=== PATIENT | female | born 1945 | race Caucasian/White ===

== ENCOUNTER → 2018-04-01 12:29 | Outpatient (REF) | payer MEDICARE, OTHER, SELFPAY | LOC: NCHCN 12:29 | PROVIDERS: Visit Provider Nurse Practitioner | DX: R58 Hemorrhage, not elsewhere classified (principal) | CPT/HCPCS: 87480; 87510; 87660 ==

== ENCOUNTER → 2018-04-10 01:54 | Outpatient (CLI) | payer MEDICARE, SELFPAY ==
--- NOTE | 2018-04-10 15:30 | DI.REPORT_ITS ---
SYMPTOMS/DIAGNOSIS: SCREENING, Z12.39, PREVENTATIVE CARE, Z00.00 MAMMOGRAMS: Mammograms were interpreted according to the usual protocol including computer analysis with CAD system, tomosynthesis and C view imaging. The breast tissue is heterogeneously radiodense, which lowers the sensitivity of the study. There is no dominant mass. Numerous benign-appearing calcifications are identified bilaterally. No suspicious clusters are seen. SUMMARY: No evidence of malignancy, category 1. Yearly screening mammography is recommended. Breast density category C. SA ASSESSMENT OF FINDINGS: Negative. Category 1. Patient will receive a letter notifying them of these results. Bi-RADS category C. The breasts are heterogeneously dense, which may obscure small masses.
== END ==
PROVIDERS: Visit Provider Nurse Practitioner
DX: Z12.31 Encounter for screening mammogram for malignant neoplasm of breast (principal)
CPT/HCPCS: 77063; 77067

== ENCOUNTER 2018-05-09 13:52 | Outpatient (REF) | payer MEDICARE, OTHER, SELFPAY ==
--- NOTE | 2018-05-09 13:00 | PAPFT_PTH ---
PATIENT: Stephy Colindres LOC: [facility] U#:[id number] AGE/SX: 72/F ROOM: RE05/09/[address]: Isabela Sandoval : 1945 BED: DIS: 05/09/2018 SPEC #: [id number] RECD: 05/09/18 18:12 STATUS: MARYLIN REEvelin #: [id number] MARIA: 05/09/18 13:[address]: Isabela Sandoval DEPT: [facility] Cytology RECD BY: Kala Cook ENTERED: 05/09/18 18:12 SP TYPE: PAPFT OTHR DR: Elly Cruz Tissues: 1 - CX/ENDOCX FOR PAP SMEARS Procedures: PAP THIN PREP/UVM Screening HPV DNA PROBE Comments: [id number]
--- NOTE | 2018-05-09 13:00 | ENDOMET_PTH ---
PATIENT: Stephy Colindres LOC: [facility] U#:[id number] AGE/SX: 72/F ROOM: RE05/09/[address]: Isabela Sandoval : 1945 BED: DIS: 05/09/2018 SPEC #: [id number] RECD: 05/09/18 18:18 STATUS: MARYLIN REEvelin #: [id number] MARIA: 05/09/18 13:[address]: Isabela Sandoval DEPT: Surgical Specimen RECD BY: Kala Cook ENTERED: 05/09/18 18:18 SP TYPE: Endomet OTHR DR: Elly Cruz Tissues: 1 - ENDOMETRIUM BX/CONCHITA Procedures: GROSS AND MICRO LEVEL 4 IMMUNOPEROXIDASE STAIN P16 IPEX Comments: [id number]
== END 2018-05-09 14:12 ==
LOC: LBN 13:52
PROVIDERS: Visit Provider Obstetrics & Gynecology Gynecology
DX: N95.0 Postmenopausal bleeding (principal); N85.8 Other specified noninflammatory disorders of uterus; Z12.4 Encounter for screening for malignant neoplasm of cervix; Z11.51 Encounter for screening for human papillomavirus (HPV)
CPT/HCPCS: 88142; 88305; 88342; 87624; 88361

== ENCOUNTER 2018-05-15 02:15 | Outpatient (CLI) | payer MEDICARE, OTHER, SELFPAY ==
[2018-05-15 07:53] LABS: HCT 43.6 % (36.0-46.0); HGB 14.2 g/dL (12.0-15.5); Mean Corp. HGB Concentration 32.6 g/dL (32.0-36.0); Mean Corpuscular Hemoglobin 31.3 pg (27.0-33.0); Mean Platelet Volume 9.7 fL (8.0-11.0); Platelet Count 287 x1000/uL (130-400); RBC 4.54 m/cumm (4.00-5.20); RBC Distribution Width 13.6 % (11.7-14.6)
[2018-05-15 09:06] LABS: ALT 20 U/L (12-78); AST 20 U/L (15-37); Albumin 3.5 g/dL (3.4-5.0); Alkaline Phosphatase 81 U/L (46-116); Anion Gap 5.3 mmol/L (3-11); BUN 17 mg/dL (7-18); Bilirubin, Total 0.4 mg/dL (0.2-1.0); CO2 29.7 mmol/L (21.0-32.0); CREATININE 0.79 mg/dL (0.55-1.02); Calcium 8.5 mg/dL (8.5-10.1); Chloride 104 mmol/L (98-107); Cholesterol 256 mg/dL (50-200); Glucose 86 mg/dL (70-100); HDL Cholesterol 67 mg/dL (40-60); LDL CHOLESTEROL 165 mg/dL (<100); Potassium 4.3 mmol/L (3.5-5.1); Sodium 139 mmol/L (136-145); Total Protein 7.2 g/dL (6.4-8.2); Triglyceride 148 mg/dL (30-150)
== END 2018-05-15 02:35 ==
PROVIDERS: Visit Provider Family Medicine
DX: E78.89 Other lipoprotein metabolism disorders (principal); F03.90 Unspecified dementia, unspecified severity, without behavioral disturbance, psychotic disturbance, mood disturbance, and anxiety
CPT/HCPCS: 36415; 80053; 80061; 83721; 85027

== ENCOUNTER → 2018-05-17 09:01 | Outpatient (BNVA) | payer MEDICARE, OTHER, SELFPAY | PROVIDERS: Visit Provider Surgery | DX: Z12.11 Encounter for screening for malignant neoplasm of colon (principal); Z80.0 Family history of malignant neoplasm of digestive organs ==

== ENCOUNTER 2018-06-03 07:21 | Day surgery (SDC) | payer MEDICARE, OTHER, SELFPAY ==
--- NOTE | 2018-06-03 06:11 | W.COLOREPORT ---
Date of service: 06/03/18 Time of Service: : Colonoscopy Report Date of procedure: 06/03/18 Pre-op diagnosis general: Family history and colon cancer screening Procedure: Colonoscopy with polypectomy by cold forceps Surgeon: Sonia Sandra Anesthesia proc note operative: MAC (Shayna Avery CRNA) Estimated blood loss (mL): 5 Pathology: other (Polyp x5) Complications: None Disposition: same day Indications: Mrs. Colindres is a pleasant 72 year old female who was seen in the office with her to discuss a screening colonoscopy. Risks, benefits and complications were reviewed and she wished to proceed. No guarantees were given or implied. Prep: Miralax/Dulcolax Procedure Start Time: : Procedure End Time: 10:03 Retraction Time: 27 minutes Findings: Reyes-diverticulosis 5 polyps Procedure Description: After informed consent was obtained the patient was taken to the procedure room and placed in a left decubitous position. Monitors were applied and a time out was done. The patients name, date of , procedure, allergies to medications and metal in their body was reviewed. The patient was then sedated. Once sedated and comfortable a rectal exam was done. External exam was normal. Internal exam revealed a normal sphincter tone and no palpable masses. The scope was then introduced and retroflexed. No internal hemorrhoids were identified. The scope was then advanced to the cecum without difficulty. The TI and appendiceal orifice were identified. The prep was adequate. The scope was then slowly retracted over 27 minutes back into the rectum. 5 polyps were removed. 2 in the ascending colon, 2 in the transverse colon and 1 in the descending colon. Reyes-diverticulosis was also noted, worse in on the left colon. The scope was removed and the patient was woken up and taken back to Same day surgery in stable condition. The patient tolerated the procedure well and there were no immediate complications. Follow up: The patient should follow up in 3-5 years unless they develop changes in bowel habits or other new gastrointestinal complaints.
--- NOTE | 2018-06-03 06:13 | PDOC.DSDIS_ITS ---
Discharge Plan Disposition Patient Disposition: HOME Condition: Good Discharge Details Reason For Visit: colonoscopy Attending Provider: Sonia Sandra Primary Care Provider: Elly Cruz Home Meds and New Rx's Prescriptions: Continue cyanocobalamin (vitamin B-12) 1,000 MCG tablet 1,000 mcg PO DAILY RF: 0 multivitamin 1 EACH tablet 1 ea PO DAILY RF: 0 cholecalciferol (vitamin D3) [Vitamin D3] 400 UNIT tablet 400 unit PO DAILY RF: 0 acetaminophen [Tylenol] 325 mg Capsule RF: 0 Discontinued magnesium citrate solution 240 ml PO ONCE Qty: 888 RF: 0 Discharge Instructions Instructions: Colonoscopy (DC), Diverticulosis (DC), Colorectal Polyps (DC) Additional Instructions: Findings: 5 polyps Diverticulosis Follow up: 3-5 years New Medication: none Please call if you develop: fevers >101.5 Nausea or Vomiting Abdominal pain that is not transient 1. Because there will be medication in your system for the next 24 hours, you may feel a little sleepy. Your coordination will be affected. Therefore: a. Do not drive or operate dangerous equipment for 24 hours. b. Do not drink alcohol beverages for 24 hours (not even beer). c. Plan to go home and rest for the day. 2. Generally there are no restrictions on your activity after a day or so has gone by, but you may feel a bit fatigued for a few days. 3 After you arrive home you may have a light meal and return to a normal diet as you can tolerate it without feeling sick to your stomach. 4. After surgery, you may feel pain or discomfort. This should be only transient , but if it persists please contact your doctor. 5. If there are any questions regarding the findings of your procedure, please feel free to contact your doctor. 6. If you are unable to contact your doctor with a problem, contact the ospital at [phone]. 7. Continue all your regular medications unless directed otherwise. I understand the above instructions and have no questions. Signature of Patient or Responsible Adult Escort Date/Time Name of Responsible Adult Escort Signature of Nurse Date/Time Activity:: Activity as Tolerated Diet:: high fiber diet Discharge Orders Discharge Orders: Discharge Order (Routine); Ordered 06/03/18 Ordered By: Sonia Sandra DS: Diagnosis Discharge Diagnosis (1) Colon polyps: Status: Acute (2) Diverticulosis: Status: Acute
[2018-06-03 08:00] VITALS: BP 123/76; PULSE 60; RESP 18; TEMP 36.5; O2SAT 98
[2018-06-03 08:15] VITALS: BP 123/76; PULSE 60; RESP 18; TEMP 36.5; O2SAT 98
[2018-06-03] MEDS: Lactated Ringers 1,000 ML 80 ML IV (08:20)
--- NOTE | 2018-06-03 09:40 | BOWEL_PTH ---
PATIENT: Stephy Colindres LOC: [facility] U#:[id number] AGE/SX: 72/F ROOM: RE06/03/[address]: Sonia Sandra MD : 1945 BED: DIS: 06/03/2018 SPEC #: [id number] RECD: 06/03/18 12:43 STATUS: MARYLIN REQ #: [id number] MARIA: 06/03/18 09:[address]: Sonia Sandra DEPT: Surgical Specimen RECD BY: Kala Cook ENTERED: 06/03/18 12:45 SP TYPE: Bowel OTHR DR: Elly Cruz Tissues: 1 - BIOPSY BOWEL 2 - BIOPSY BOWEL 3 - BIOPSY BOWEL Procedures: GROSS AND MICRO LEVEL 4 Comments: [id number]
[2018-06-03 10:50] VITALS: BP 113/53; PULSE 60; RESP 18; TEMP 35.9; O2SAT 96
[2018-06-03 12:05] VITALS: BP 131/69; PULSE 58; RESP 18; TEMP 36.2; O2SAT 95
[2018-06-03] MEDS: Ketorolac 15 MG/ML VIAL IVP (12:05)
[2018-06-03 12:30] VITALS: BP 141/83; PULSE 54; RESP 18; TEMP 36; O2SAT 98
[2018-06-03 13:30] VITALS: BP 140/70; PULSE 66; RESP 16; TEMP 35.4; O2SAT 100
== END 2018-06-03 13:50 | disposition home or self-care (01) ==
PROVIDERS: Visit Provider Surgery
PROC: 0DJD8ZZ Inspection of Lower Intestinal Tract, Via Natural or Artificial Opening Endoscopic (ICD-10-PCS; CPT 45378; principal; 2018-06-03 09:00)
DX: Z12.11 Encounter for screening for malignant neoplasm of colon (principal); D12.2 Benign neoplasm of ascending colon; D12.3 Benign neoplasm of transverse colon; D12.4 Benign neoplasm of descending colon; Z80.0 Family history of malignant neoplasm of digestive organs
CPT/HCPCS: 45380; 88305; J1885

== ENCOUNTER 2018-06-04 05:10 | Emergency (ER) | payer MEDICARE, OTHER, SELFPAY ==
[2018-06-04 05:12] VITALS: BP 119/63; PULSE 63; RESP 20; TEMP 36.4; O2SAT 95
--- NOTE | 2018-06-04 05:24 | W.ED.GENAD ---
Discharge Plan Disposition Patient Disposition: HOME Condition: Improving Discharge Details Chief Complaint: Abd Prob Clinical Impression: Abdominal distension, gaseous Primary Care Provider: Elly Cruz ED Provider: Ankur Caraballo Home Meds and New Rx's Prescriptions: Continue cyanocobalamin (vitamin B-12) 1,000 MCG tablet 1,000 mcg PO DAILY RF: 0 multivitamin 1 EACH tablet 1 ea PO DAILY RF: 0 cholecalciferol (vitamin D3) [Vitamin D3] 400 UNIT tablet 400 unit PO DAILY RF: 0 acetaminophen [Tylenol] 325 mg Capsule 1 tab PO PRN PRNRF: 0 Discharge Instructions Instructions: Abdominal Pain (ED) Additional Instructions: I discussed your case and your CAT scan with Dr. Sandra today Please continue all regular medications. Return to the emergency room for any acute concerns. Home to rest today. Medical Decision Making 72-year-old female presents post procedure day 1 with abdominal pain following colonoscopy with polypectomy. She does not have a fever and her vital signs are reassuring. She is diffusely tender in her abdomen. Broad differential diagnosis including perforation, obstruction, ileus considered. Patient had IV access established, given small fluid bolus, referred for CT scan of the abdomen. Patient's laboratories are reassuring. Her CT scan shows colonic dilatation with gas but no other acute findings. Case discussed with the patient's surgeon, Dr. Figueroa. Patient given enema in the ED. she is stable for discharge to home. Lab Data Lab results reviewed: Yes I reviewed the patient's lab results. Laboratory Tests Range/Units 06/04/18 06/04/18 05:40 05:40 WBC (4.4-10.8) k/cumm 7.55 RBC (4.00-5.20) m/cumm 4.27 Hgb (12.0-15.5) g/dL 13.7 Hct (36.0-46.0) % 40.4 MCV (80-95) fL 94.6 MCH (27.0-33.0) pg 32.1 MCHC (32.0-36.0) g/dL 33.9 RDW (11.7-14.6) % 13.4 Plt Count (130-400) x1000/uL 239 MPV (8.0-11.0) fL 9.7 Immature Gran % 0.1 Neutrophils % 79.9 Lymphocytes % 12.5 Monocytes % 6.9 Eosinophils % 0.5 Basophils % 0.1 Absolute Neutrophils (1.2-6.7) k/cumm 6.03 Absolute Lymphocytes (1.2-3.4) k/cumm 0.94 L Absolute Monocytes (0.11-0.7) k/cumm 0.52 Absolute Eosinophils (0.0-0.7) k/cumm 0.04 Absolute Basophils (0.0-0.2) k/cumm 0.01 Sodium (136-145) mmol/L 138 Potassium (3.5-5.1) mmol/L 3.5 Chloride (98-107) mmol/L 102 Carbon Dioxide (21.0-32.0) mmol/L 29.7 Anion Gap (3-11) mmol/L 6.3 BUN (7-18) mg/dL 10 Creatinine (0.55-1.02) mg/dL 0.85 Estimated GFR/1.73 m2 (mL/min/1.73m2) >= 60.00 Glucose (70-100) mg/dL 122 H Calcium (8.5-10.1) mg/dL 8.8 Total Bilirubin (0.2-1.0) mg/dL 0.8 AST (15-37) U/L 21 ALT (12-78) U/L 19 Alkaline Phosphatase (46-116) U/L 70 Total Protein (6.4-8.2) g/dL 7.1 Albumin (3.4-5.0) g/dL 3.3 L Lipase (73-393) U/L 76 HPI General Mode of arrival: ambulatory. Date/Time Provider Initiated Documentation: 06/04/18 05:18. Limitations to Documentation: no limitations. Information obtained by: patient and family. History of Present Illness 72 year old F presents to the emergency department with the chief complaint of Abdominal pain, described as severe, Quality is described as constant, and is localized to the abdomen. Patient abdomen. Patient started experiencing this hour(s) and it has been constant. No relieving factors improve symptom(s), No exacerbating factors reported . HPI Narrative: 72-year-old female presents from home with her . She underwent colonoscopy with polypectomy yesterday. She states she developed postprocedure primarily lower and then diffuse abdominal pain has been constant, nonradiating. She has not had a fever. She denies any rectal bleeding. She has not had any vomiting. No exacerbating or ameliorating factors Related Data Home Medications Medication Instructions Recorded Confirmed cholecalciferol (vitamin D3) 400 unit PO DAILY 01/03/13 06/04/18 [Vitamin D3] multivitamin 1 ea PO DAILY 01/03/13 06/04/18 cyanocobalamin (vitamin B-12) 1,000 mcg PO DAILY 02/18/18 06/04/18 acetaminophen [Tylenol] 1 tab PO PRN PRN 06/03/18 06/04/18 Allergies Allergy/AdvReac Type Severity Reaction Status Date / Time No Known Allergies Allergy Unverified 06/04/18 06:02 General Stated Complaint: Abd Prob GINNA: 3 Review of Systems Review of Systems 8 systems reviewed and otherwise negative [facility] Medical History Procidentia of uterus (Acute) Postmenopausal Bleeding (Acute) Dementia (Chronic) Social History adopted: No household members: spouse number of children: 2 current occupational status: retired frequency: daily duration: 60-90 minutes/day Smoking/Tobacco Use Status: Never second hand exposure: Yes alcohol intake: never substance use type: does not use seatbelt use: always Exam Narrative Exam Narrative: GEN: awake, alert, oriented 3. Pleasant, well groomed, interactive. HEAD: Normocephalic, atraumatic ENT: Mucous membranes moist, oropharynx unremarkable, External ear exam unremarkable EYES: PERRL, EOMI NECK: Full ROM, no POOL, no menigismus CHEST/RESP: Nontender, clear to auscultation bilateral, no wheeze/rhonchi/rales CARDIOVASCULAR: RRR, no murmur, rub larissa. 2+ Rad pulse bilateral ABDOMEN: Soft, tender throughout the abdomen to palpation, no mass. +Bowel sounds EXT: Full ROM, no edema, no rash Neuro: Grossly normal neurologic exam, conversant, interactive. Psych: Speech fluent, thoughts congruent, affect normal Course Vital Signs Temperature 36.4 C L 06/04/18 05:12 Pulse 63 06/04/18 05:12 Respiratory Rate 20 06/04/18 05:12 Blood Pressure 119/63 06/04/18 05:12 Pulse Oximetry 95 06/04/18 05:12 Temperature 36.4 C L 06/04/18 05:12 Temperature Source Skin 06/04/18 05:12 Pulse 63 06/04/18 05:12 Respiratory Rate 20 06/04/18 05:12 Blood Pressure 119/63 06/04/18 05:12 Pulse Oximetry 95 06/04/18 05:12 Oxygen Delivery Method Room Air 06/04/18 05:12 Oxygen Flow Rate 0 06/04/18 05:12 Pain Level 10 06/04/18 05:12
--- NOTE | 2018-06-04 05:27 | ED.GENADUL_ITS ---
Discharge Plan Disposition Patient Disposition: HOME Condition: Improving Discharge Details Chief Complaint: Abd Prob Clinical Impression: Abdominal distension, gaseous Primary Care Provider: Elly Cruz ED Provider: Ankur Caraballo Home Meds and New Rx's Prescriptions: Continue cyanocobalamin (vitamin B-12) 1,000 MCG tablet 1,000 mcg PO DAILY RF: 0 multivitamin 1 EACH tablet 1 ea PO DAILY RF: 0 cholecalciferol (vitamin D3) [Vitamin D3] 400 UNIT tablet 400 unit PO DAILY RF: 0 acetaminophen [Tylenol] 325 mg Capsule 1 tab PO PRN PRNRF: 0 Discharge Instructions Instructions: Abdominal Pain (ED) Additional Instructions: I discussed your case and your CAT scan with Dr. Sandra today Please continue all regular medications. Return to the emergency room for any acute concerns. Home to rest today. Medical Decision Making 72-year-old female presents post procedure day 1 with abdominal pain following colonoscopy with polypectomy. She does not have a fever and her vital signs are reassuring. She is diffusely tender in her abdomen. Broad differential diagnosis including perforation, obstruction, ileus considered. Patient had IV access established, given small fluid bolus, referred for CT scan of the abdomen. Patient's laboratories are reassuring. Her CT scan shows colonic dilatation with gas but no other acute findings. Case discussed with the patient's surgeon , Dr. Figueroa. Patient given enema in the ED. she is stable for discharge to home. Lab Data Lab results reviewed: Yes I reviewed the patient's lab results. Laboratory Tests Range/Units 06/04/18 06/04/18 05:40 05:40 WBC (4.4-10.8) k/cumm 7.55 RBC (4.00-5.20) m/cumm 4.27 Hgb (12.0-15.5) g/dL 13.7 Hct (36.0-46.0) % 40.4 MCV (80-95) fL 94.6 MCH (27.0-33.0) pg 32.1 MCHC (32.0-36.0) g/dL 33.9 RDW (11.7-14.6) % 13.4 Plt Count (130-400) x1000/uL 239 MPV (8.0-11.0) fL 9.7 Immature Gran % 0.1 Neutrophils % 79.9 Lymphocytes % 12.5 Monocytes % 6.9 Eosinophils % 0.5 Basophils % 0.1 Absolute Neutrophils (1.2-6.7) k/cumm 6.03 Absolute Lymphocytes (1.2-3.4) k/cumm 0.94 L Absolute Monocytes (0.11-0.7) k/cumm 0.52 Absolute Eosinophils (0.0-0.7) k/cumm 0.04 Absolute Basophils (0.0-0.2) k/cumm 0.01 Sodium (136-145) mmol/L 138 Potassium (3.5-5.1) mmol/L 3.5 Chloride (98-107) mmol/L 102 Carbon Dioxide (21.0-32.0) mmol/L 29.7 Anion Gap (3-11) mmol/L 6.3 BUN (7-18) mg/dL 10 Creatinine (0.55-1.02) mg/dL 0.85 Estimated GFR/1.73 m2 (mL/min/1.73m2) >= 60.00 Glucose (70-100) mg/dL 122 H Calcium (8.5-10.1) mg/dL 8.8 Total Bilirubin (0.2-1.0) mg/dL 0.8 AST (15-37) U/L 21 ALT (12-78) U/L 19 Alkaline Phosphatase (46-116) U/L 70 Total Protein (6.4-8.2) g/dL 7.1 Albumin (3.4-5.0) g/dL 3.3 L Lipase (73-393) U/L 76 HPI General Mode of arrival: ambulatory . Date/Time Provider Initiated Documentation: 06/04/18 05:18 . Limitations to Documentation: no limitations . Information obtained by: patient and family . History of Present Illness 72 year old F presents to the emergency department with the chief complaint of Abdominal pain, described as severe, Quality is described as constant, and is localized to the abdomen. Patient abdomen. Patient started experiencing this hour(s) and it has been constant. No relieving factors improve symptom(s), No exacerbating factors reported . HPI Narrative: 72-year-old female presents from home with her . She underwent colonoscopy with polypectomy yesterday. She states she developed postprocedure primarily lower and then diffuse abdominal pain has been constant , nonradiating. She has not had a fever. She denies any rectal bleeding. She has not had any vomiting. No exacerbating or ameliorating factors Related Data Home Medications Medication Instructions Recorded Confirmed cholecalciferol (vitamin D3) 400 unit PO DAILY 01/03/13 06/04/18 [Vitamin D3] multivitamin 1 ea PO DAILY 01/03/13 06/04/18 cyanocobalamin (vitamin B-12) 1,000 mcg PO DAILY 02/18/18 06/04/18 acetaminophen [Tylenol] 1 tab PO PRN PRN 06/03/18 06/04/18 Allergies Allergy/AdvReac Type Severity Reaction Status Date / Time No Known Allergies Allergy Unverified 06/04/18 06:02 General Stated Complaint: Abd Prob GINNA: 3 Review of Systems Review of Systems 8 systems reviewed and otherwise negative [facility] Medical History Procidentia of uterus (Acute) Postmenopausal Bleeding (Acute) Dementia (Chronic) Social History adopted: No household members: spouse number of children: 2 current occupational status: retired frequency: daily duration: 60-90 minutes/day Smoking/Tobacco Use Status: Never second hand exposure: Yes alcohol intake: never substance use type: does not use seatbelt use: always Exam Narrative Exam Narrative: GEN: awake, alert, oriented 3. Pleasant, well groomed, interactive. HEAD: Normocephalic, atraumatic ENT: Mucous membranes moist, oropharynx unremarkable, External ear exam unremarkable EYES: PERRL, EOMI NECK: Full ROM, no POOL, no menigismus CHEST/RESP: Nontender, clear to auscultation bilateral, no wheeze/rhonchi/rales CARDIOVASCULAR: RRR, no murmur, rub larissa. 2+ Rad pulse bilateral ABDOMEN: Soft, tender throughout the abdomen to palpation, no mass. +Bowel sounds EXT: Full ROM, no edema, no rash Neuro: Grossly normal neurologic exam, conversant, interactive. Psych: Speech fluent, thoughts congruent, affect normal Course Vital Signs Temperature 36.4 C L 06/04/18 05:12 Pulse 63 06/04/18 05:12 Respiratory Rate 20 06/04/18 05:12 Blood Pressure 119/63 06/04/18 05:12 Pulse Oximetry 95 06/04/18 05:12 Temperature 36.4 C L 06/04/18 05:12 Temperature Source Skin 06/04/18 05:12 Pulse 63 06/04/18 05:12 Respiratory Rate 20 06/04/18 05:12 Blood Pressure 119/63 06/04/18 05:12 Pulse Oximetry 95 06/04/18 05:12 Oxygen Delivery Method Room Air 06/04/18 05:12 Oxygen Flow Rate 0 06/04/18 05:12 Pain Level 10 06/04/18 05:12
[2018-06-04 05:54] LABS: Abs Immature Grans 0.01 k/cumm (0.0-0.09); Absolute Basophil Count 0.01 k/cumm (0.0-0.2); Absolute Eosinophil Count 0.04 k/cumm (0.0-0.7); Absolute Lymphocyte Count 0.94 k/cumm (1.2-3.4); Absolute Monocyte Count 0.52 k/cumm (0.11-0.7); Absolute Neutrophil Count 6.03 k/cumm (1.2-6.7); Basophils % 0.1; Eosinophils % 0.5; HCT 40.4 % (36.0-46.0); HGB 13.7 g/dL (12.0-15.5); Immature Grans % 0.1; Lymphocytes % 12.5; Mean Corp. HGB Concentration 33.9 g/dL (32.0-36.0); Mean Corpuscular Hemoglobin 32.1 pg (27.0-33.0); Mean Corpuscular Volume 94.6 fL (80-95); Mean Platelet Volume 9.7 fL (8.0-11.0); Monocytes % 6.9; Neutrophils % 79.9; Platelet Count 239 x1000/uL (130-400); RBC 4.27 m/cumm (4.00-5.20); RBC Distribution Width 13.4 % (11.7-14.6); White Blood Cell Count 7.55 k/cumm (4.4-10.8)
[2018-06-04] MEDS: HYDROmorphone 2 MG/ML VIAL 0.5 MG IVP (05:54)
[2018-06-04] MEDS: Normal Saline 1,000 ML 125 ML IV (05:55)
[2018-06-04 06:07] LABS: ALT 19 U/L (12-78); AST 21 U/L (15-37); Albumin 3.3 g/dL (3.4-5.0); Alkaline Phosphatase 70 U/L (46-116); Anion Gap 6.3 mmol/L (3-11); BUN 10 mg/dL (7-18); Bilirubin, Total 0.8 mg/dL (0.2-1.0); CO2 29.7 mmol/L (21.0-32.0); CREATININE 0.85 mg/dL (0.55-1.02); Calcium 8.8 mg/dL (8.5-10.1); Chloride 102 mmol/L (98-107); Glucose 122 mg/dL (70-100); Lipase 76 U/L (73-393); Potassium 3.5 mmol/L (3.5-5.1); Sodium 138 mmol/L (136-145); Total Protein 7.1 g/dL (6.4-8.2)
[2018-06-04] MEDS: Omnipaque 350 MG/ML 100 ML BTL IJ (06:19)
--- NOTE | 2018-06-04 06:35 | DI.CT_ITS ---
SYMPTOMS/DIAGNOSIS: ABDOMINAL PAIN FOLLOWING POLYPECTOMY AND COLONOSCOPY, 06/03 , PESSARY DEVICE CT OF THE ABDOMEN AND PELVIS: Comparison is made with January,. There is bibasilar atelectasis. The liver, gallbladder, spleen, adrenals, pancreas and kidneys are unremarkable. The patient is status post recent colonoscopy. There is distention of the colon , mainly the right side and transverse colon. The colon is somewhat redundant. The descending colon is of normal caliber. The findings may be transient or could represent a stricture in the upper descending colon. Correlation with colonoscopy results is recommended. A pessary is noted. 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 There is no small bowel dilatation. Degenerative disc changes are seen at L4-5. IMPRESSION: Colonic distention, which may be secondary to recent colonoscopy. There is no evidence of perforation. There is a question of transient narrowing versus stricture of the descending colon. Correlation with recent colonoscopy results is recommended.
--- NOTE | 2018-06-04 07:27 | DI.VRAD_ITS ---
EXAM: CT Abdomen and Pelvis With Intravenous Contrast EXAM DATE/TIME: 06/04/2018 5:25 AM CLINICAL HISTORY: 72 years old, female; Pain; Abdominal pain; Generalized; Prior surgery; Surgery date: Post-operative (0-2 days); Surgery type: Polyp removed yesterday with colonoscopy TECHNIQUE: Axial computed tomography images of the abdomen and pelvis with intravenous contrast. All CT scans at this facility use at least one of these dose optimization techniques: automated exposure control; mA and/or kV adjustment per patient size (includes targeted exams where dose is matched to clinical indication); or iterative reconstruction. Coronal and sagittal reformatted images were created and reviewed. CONTRAST: 87 ml of oMNIPAQUE 350 administered intravenously. COMPARISON: No relevant prior studies available. FINDINGS: Lower thorax: Basilar dependent pulmonary atelectasis is present. ABDOMEN: Liver: Normal. No mass. Gallbladder and bile ducts: Normal. No calcified stones. No ductal dilation. Pancreas: Normal. No ductal dilation. Spleen: Normal. No splenomegaly. Adrenals: Normal. No mass. Kidneys and ureters: Normal. No hydronephrosis. Stomach and bowel: There is moderate gas filled distention of the colon extending to the descending colon after which the colon becomes normal in caliber. The distention leads to medial deviation of the cecum without evidence for volvulus. The potential of a distal descending colonic stricture is not excluded and correlation with recent colonoscopy findings is recommended. Appendix: No evidence of appendicitis. PELVIS: Bladder: Unremarkable as visualized. Reproductive: Left-sided fat containing adnexal lesion likely reflects an ovarian dermoid measuring 3.3 cm ABDOMEN and PELVIS: Intraperitoneal space: There is no evidence for free air to suggest perforation status post colonoscopy Bones/joints: No acute fracture. No dislocation. Soft tissues: Unremarkable. Vasculature: Normal. No abdominal aortic aneurysm. Lymph nodes: Normal. No enlarged lymph nodes. Other findings: IMPRESSION: There is moderate gas filled distention of the colon extending to the descending colon after which the colon becomes normal in caliber. The distention leads to medial deviation of the cecum without evidence for volvulus. The potential of a distal descending colonic stricture is not excluded and correlation with recent colonoscopy findings is recommended. Dictated and Authenticated by: Joselito Ruiz MD. Ordering:ISAAC WESTBROOK MD
[2018-06-04 09:00] VITALS: BP 116/63; PULSE 65; RESP 18; TEMP 36.5; O2SAT 98
== END 2018-06-04 09:11 | disposition home or self-care (01) ==
PROVIDERS: Emergency Provider Emergency Medicine
DX: R14.0 Abdominal distension (gaseous) (principal); R10.30 Lower abdominal pain, unspecified; Y83.8 Other surgical procedures as the cause of abnormal reaction of the patient, or of later complication, without mention of misadventure at the time of the procedure
CPT/HCPCS: 36415; 80053; 83690; 96361; 96374; 99285; 74177; 85025; 99284; J3490

== ENCOUNTER 2018-07-23 00:59 | Outpatient (CLI) | payer MEDICARE, OTHER, SELFPAY ==
--- NOTE | 2018-07-23 13:50 | DI.US_ITS ---
SYMPTOMS/DIAGNOSIS: POSTMENOPAUSAL BLEEDING, N95.0, COMPLETE UTEROVAGINAL PROLAPSE, N81.3, PROCIDENTIA OF UTERUS, CHECK ENDOMETRIAL STRIPE PELVIC ULTRASOUND: A transabdominal exam was performed. Comparison is made with CT of the abdomen and pelvis dated May,. A pessary is in place. The patient was unable to adequately fill the bladder. Shadowing is noted from the pessary. The uterus cannot be visualized. There is no evidence of hydronephrosis. IMPRESSION: Extremely limited exam due to inadequate bladder distention and pessary.
== END 2018-07-23 01:19 ==
PROVIDERS: Visit Provider Obstetrics & Gynecology Gynecology
DX: N81.3 Complete uterovaginal prolapse (principal); N95.0 Postmenopausal bleeding; Z46.6 Encounter for fitting and adjustment of urinary device
CPT/HCPCS: 76857

== ENCOUNTER 2019-01-09 10:08 | Outpatient (REF) | payer MEDICARE, OTHER, SELFPAY | END 2019-01-09 10:28 | LOC: LBN 10:08 | PROVIDERS: Visit Provider Obstetrics & Gynecology Gynecology | DX: R35.0 Frequency of micturition (principal) | CPT/HCPCS: 87086 ==

== ENCOUNTER → 2019-02-18 08:13 | Outpatient (BNVA) | payer MEDICARE, OTHER, SELFPAY | PROVIDERS: Visit Provider Nurse Practitioner Adult Health | DX: G30.1 Alzheimer's disease with late onset (principal); F02.80 Dementia in other diseases classified elsewhere, unspecified severity, without behavioral disturbance, psychotic disturbance, mood disturbance, and anxiety | CPT/HCPCS: 99213 ==

== ENCOUNTER → 2019-08-25 10:22 | Outpatient (BNVA) | payer MEDICARE, SELFPAY | PROVIDERS: Visit Provider Nurse Practitioner Adult Health | DX: G30.1 Alzheimer's disease with late onset (principal); F02.80 Dementia in other diseases classified elsewhere, unspecified severity, without behavioral disturbance, psychotic disturbance, mood disturbance, and anxiety; Z91.83 Wandering in diseases classified elsewhere | CPT/HCPCS: 99213 ==

== ENCOUNTER 2019-08-27 16:34 | Outpatient (REF) | payer MEDICARE, SELFPAY ==
[2019-08-27 23:06] LABS: Anion Gap 7.1 mmol/L (3-11); BUN 14 mg/dL (7-18); CO2 30.9 mmol/L (21.0-32.0); CREATININE 0.74 mg/dL (0.55-1.02); Calcium 8.9 mg/dL (8.5-10.1); Chloride 103 mmol/L (98-107); Glucose 95 mg/dL (74-106); NT-proBNP 200 pg/mL (<300); Potassium 4.3 mmol/L (3.5-5.1); Sodium 141 mmol/L (136-145)
== END 2019-08-27 16:54 ==
LOC: NCHCN 16:34
PROVIDERS: Visit Provider Family Medicine
DX: R60.0 Localized edema (principal); Z86.79 Personal history of other diseases of the circulatory system
CPT/HCPCS: 80048; 83880

== ENCOUNTER 2019-12-31 01:05 | Outpatient (CLI) | payer OTHER, SELFPAY ==
[2019-12-31 09:18] LABS: Anion Gap 8.9 mmol/L (3-11); BUN 12 mg/dL (7-18); CO2 29.1 mmol/L (21.0-32.0); CREATININE 0.98 mg/dL (0.55-1.02); Calcium 9.1 mg/dL (8.5-10.1); Chloride 100 mmol/L (98-107); Estimated GFR 55.79 (mL/min/1.73m2); Glucose 130 mg/dL (74-106); Potassium 4.1 mmol/L (3.5-5.1); Sodium 138 mmol/L (136-145)
== END 2019-12-31 01:25 ==
PROVIDERS: PCP Family Medicine; Visit Provider Family Medicine
DX: R60.0 Localized edema (principal)
CPT/HCPCS: 36415; 80048

== ENCOUNTER → 2020-02-24 14:25 | Outpatient (BNVA) | payer OTHER, SELFPAY | PROVIDERS: PCP Family Medicine; Visit Provider Nurse Practitioner Adult Health | DX: G30.1 Alzheimer's disease with late onset (principal); F02.80 Dementia in other diseases classified elsewhere, unspecified severity, without behavioral disturbance, psychotic disturbance, mood disturbance, and anxiety | CPT/HCPCS: 99213 ==

== ENCOUNTER 2020-03-28 10:54 | Emergency (ER) | payer OTHER, SELFPAY ==
[2020-03-28] VITALS (12 sets, daily range): BP systolic 136–149; BP diastolic 74–78; PULSE 61–84; RESP 12–24; TEMP 36.6–36.7; O2SAT 96–100
--- NOTE | 2020-03-28 10:45 | RT.EKG_ITS ---
APPROVED REPORT Exam: Resting ECG Patient Location: E HR:63 bpm ECG Measurements Heart Rate 63 AXIS AR 160 P 22 QRSd 84 QRS 3 QT 413 T 9 QTc 425 Conclusion Sinus rhythm...normal P axis, V-rate 60- 99 Inferior infarct, old...Q >35mS, II III aVF
--- NOTE | 2020-03-28 11:05 | ED.GENADUL_ITS ---
Discharge Plan Disposition Patient Disposition: HOME Condition: Improving Discharge Details Chief Complaint: SOB Clinical Impression: Shortness of breath Primary Care Provider: Aury Bass ED Provider: Victorina Che Home Meds and New Rx's Prescriptions: Continued furosemide 20 mg tablet 20 mg PO DAILY Qty: 90 RF: 0 cyanocobalamin (vitamin B-12) 1,000 MCG tablet 1,000 mcg PO DAILY RF: 0 trazodone 100 mg tablet 100 mg PO QHS Qty: 30 RF: 3 multivitamin 1 EACH tablet 1 ea PO DAILY RF: 0 cholecalciferol (vitamin D3) [Vitamin D3] 400 UNIT tablet 400 unit PO DAILY RF: 0 acetaminophen [Tylenol] 325 mg Capsule 1 tab PO PRN PRNRF: 0 Discharge Instructions Instructions: Dyspnea (ED) Additional Instructions: Your evaluation is reassuring here. Please follow-up closely with primary care. If you develop any new or worsening symptoms please seek care urgently once again. Referrals: Aury Bass [Primary Care Provider] - Medical Decision Making Patient is a pleasant 74-year-old female, brought in by her via wheelchair, with chief complaint shortness of breath. They report this symptom began approximately 1 hour ago. States that she awoke at 7 AM and had initially been feeling well. Normal appetite, no shortness of breath or pain. Patient is currently denying any chest pain. She states that she continues to feel slightly short of breath. Is not had any cough. Denies any pain in her chest, back, neck or arms. Denies any GI upset. is caregiver and answers many of the questions. Past medical history pertinent for Alzheimer's, hallucinations, hyperlipidemia. Patient does not have any history of DVT, PE. She is not anticoagulated. No history of cardiac disease. No recent medications as well as does report that trazodone was increased from 50 mg to 100 mg over a month ago. On exam, patient anxious. She appears nontoxic and does not appear to be in any respiratory distress. She is very worked up about the tourniquet being on her arm when nursing staff is trying to obtain IV access. Her lungs are clear. Normal cardiac exam. Vital signs are stable. Normal abdominal exam. Lower extremities do have 1+ pitting edema but these have been wrapped in her will point to this is baseline and unchanged. EKG was reviewed by Dr. Caraballo. Patient is in a normal sinus rhythm with a rate of 63 with no acute ischemic changes noted. XR reviewed by radiologist: FINDINGS: Lungs: The lungs are normally expanded and clear. Pleural space: Normal. Heart/Mediastinum: Enlarged heart. Vasculature: Normal pulmonary vessel caliber. Normal aorta. Bones/joints: The bones are intact. IMPRESSION: Cardiomegaly but no acute disease. Labs reviewed. No leukocytosis. Stable H&H. D-dimer is within the age- adjusted normal, CMP without abnormality. Troponin is less than 0.05. BNP is normal at 189. Reassess the patient. She does appear pleasantly confused but otherwise comfortable. She is not having any shortness of breath or difficulty breathing. She is requesting food. I do plan for repeat troponin given the sudden onset of her symptoms but I did advise that this also may be anxiety driven and may be part of her developing Alzheimer's. Patient continues to be asymptomatic. Continue to reassess. Her repeat troponin remains less than 0.05 and EKG remains unchanged. EKG was also reviewed by Dr. Caraballo once again. I discussed disposition with the patient and her . She feels like she is ready to go home at this time. Is unclear if the patient was actually short of breath when she initially came in she never appeared so and certainly had stable vital signs which was reassuring. This may have been anxiety linked. She has been fairly asymptomatic since being here. I did give him strict return precautions. I feel that follow-up with primary care and discharge to home is appropriate. They were given strict return precautions. All of their questions and concerns were addressed in agreement with this plan. HPI General Mode of arrival: wheelchair . Date/Time Provider Initiated Documentation: 03/28/20 11:05 . Limitations to Documentation: altered mental status (Patient has also was at baseline) . Information obtained by: patient, family ( who is primary caregiver.), RN notes reviewed and old records reviewed . History of Present Illness 74 year old F presents to the emergency department with the chief complaint of Shortness of breath, described as moderate, Quality is described as other (Denies any pain), and is localized to the chest. Patient started experiencing this hour(s) (1) and it has been constant. No relieving factors improve symptom(s), No exacerbating factors reported . Patient notes no other symptoms.. Patient did receive the following treatments prior to arrival, none Related Data Home Medications Medication Instructions Recorded Confirmed cholecalciferol (vitamin D3) 400 unit PO DAILY 01/03/13 03/28/20 [Vitamin D3] multivitamin 1 ea PO DAILY 01/03/13 03/28/20 cyanocobalamin (vitamin B-12) 1,000 mcg PO DAILY 02/18/18 03/28/20 acetaminophen [Tylenol] 1 tab PO PRN PRN 06/03/18 03/28/20 furosemide 20 mg tablet 20 mg PO DAILY #90 tab 12/30/19 03/28/20 trazodone 100 mg tablet 100 mg PO QHS #30 tab 01/29/20 03/28/20 Previous Rx's Medication Instructions Recorded furosemide 20 mg tablet 20 mg PO DAILY #90 tab 12/30/19 trazodone 100 mg tablet 100 mg PO QHS #30 tab 01/29/20 Allergies Allergy/AdvReac Type Severity Reaction Status Date / Time No Known Allergies Allergy Unverified 02/24/20 14:51 General Stated Complaint: SOB GINNA: 3 Review of Systems Constitutional Constitutional: Reports as per HPI, Denies chills, Denies fever(s), Denies headache(s), Denies lethargy and Denies poor appetite Eyes Eyes: Denies change in vision ENT Ears, Nose, Mouth, and Throat: Denies dizziness and Denies headache(s) Cardiovascular Cardiovascular: Reports as per HPI, Denies chest pain, Denies chest pain at rest, Denies chest pain with activity, Reports leg edema (Chronic and unchanged from baseline, has compressions on), Denies radiating jaw, neck or arm pain, Reports dyspnea and Denies dyspnea on exertion Respiratory Respiratory: Reports as per HPI, Denies chest congestion, Denies cough, Denies pain on inspiration, Denies pain with cough, Reports dyspnea, Denies dyspnea on exertion and Denies wheezing Gastrointestinal Gastrointestinal: Reports as per HPI, Denies abdominal pain, Denies diarrhea, Denies nausea and Denies vomiting Musculoskeletal Musculoskeletal: Reports as per HPI and Denies back pain Integumentary/Breasts Skin/Breast: Reports as per HPI and Denies rash Neurologic Neurologic: Reports as per HPI, Denies dizziness and Denies headache(s) Allergic/Immunologic Allergic/Immunologic: Denies wheezing [facility] Medical History (Updated 03/28/20 @ 15:43 by LAUREN Fernando) Alzheimer's dementia, late onset (Chronic) Dementia (Chronic) DNI (do not intubate) (Acute) DNR (do not resuscitate) (Acute) Fecal incontinence (Acute) Goals of care, counseling/discussion (Chronic) Hallucinations (Chronic) mostly about children, who require her care 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 one episode of blood on underclothes while uterine procidentia unsupported. Pap/HPV Nl/Neg. EMBx: atypical metaplastic cells. Inactive endometrial glandular tissue. Patient family declined surgical intervention to further evaluate postmenopausal bleeding. Procidentia of uterus (Acute) Initially fitted with a Gellhorn pessary. Periodic surveillance was too uncomfortable. 10/2018 ring with support pessary 76 mm placed. Requires assistance with activities of daily living (ADL) (Chronic) Risk for falls (Chronic) ordered both PT and OT for further evaluation and treatment Urinary incontinence (Acute) Vitamin D deficiency (Chronic) Wandering (Acute) Surgical History History of colonoscopy (Chronic) 06/04/2018 Family History Mother , age 92 of cancer; had dementia for about 7 years Heart disease Alzheimer disease Cancer Father , of stroke age 72 Cancer Stroke Hypertension Daughter Obesity Daughter Caregiver stress Granddaughter No problems noted. 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 [employer] Pets and animals: Yes (2) Pets and animals: cat(s) What is your relationship status?: How often do you talk on the phone with friends or family?: never How often do you get together with friends or relatives?: three or more times per week Panel score (0-1 are the most socially isolated patients): 2 What type of physical activity do you participate in: walking Duration: 60-90 minutes/day Frequency: daily Special madhu needs: No Seatbelt use: always Do you feel safe at home: Yes Do you feel safe in your relationship?: Yes Additional Social history: Lives with who helps her get dressed and showered. No longer able to do her own personal care (as of 12/30). She wanders at night; locked out twice last fall. New locks prevent egress outdoors--but during the day, napped and she wandered again. Still likes to dance and listen to Dwight with her daughter Zoey. Went to [place] at least 2 days per week--but stopped when COVID-19 shut it down. tiring. Not yet hospice eligible. Much worse, though. Female Reproductive History Menstrual Menopause type: natural History History 3 Para Hx # Term Pregnancies 2 Multiple births Hx # Pregnancies Ectopic pregnancies AB induced Hx Number of Living Children AB spontaneous Exam Const General: cooperative, healthy appearing, comfortable, well developed and anxious Nutritional Appearance: well nourished and overweight Orientation: alert, awake and confused ( reports this is baseline) [facility] Head: normal to inspection Ears: hearing grossly normal bilaterally Mouth: moist mucous membranes Chest Chest: normal inspection of the chest, normal palpation of entire chest wall and no crepitus Resp Effort & Inspection: normal respiratory effort, able to speak in complete sentences and no respiratory distress Auscultation: clear to auscultation bilaterally, no rales, no rhonchi and no wheezes Cardio Rate: regular rate Rhythm: regular rhythm Heart Sounds: S1 normal and S2 normal GI Inspection: normal to inspection, no edema and non-distended Palpation: soft, no hepatosplenomegaly, not firm, no guarding, not rigid and nontender Auscultation: normal bowel sounds Back/Spine/Pelvis Back: no CVA tenderness Thoracic/Lumbar Spine: thoracic and lumbar spine normal to inspection Skin General skin exam: no rashes or lesions noted Trauma: no lacerations or abrasions Neuro General: patient alert, patient awake and patient oriented x3 Cognition: normal cognition Speech: speech normal Gait: normal gait Extrem General: normal to inspection, capillary refill normal, no calf tenderness, normal gait and pedal edema (Bilateral 1+ pitting edema) Psych Appearance: grossly normal and well kempt Mental Status: mental status grossly normal Speech and Movement: speech and movement normal Course Vital Signs Vital signs: Vital Signs Temperature 36.7 C 03/28/20 11:02 Pulse 63 03/28/20 11:02 Respiratory Rate 18 03/28/20 11:02 Blood Pressure 149/74 H 03/28/20 11:02 Pulse Oximetry 98 03/28/20 11:02 Temperature 36.7 C 03/28/20 11:02 Temperature Source Temporal Artery Scan 03/28/20 11:02 Pulse 63 03/28/20 11:02 Respiratory Rate 18 03/28/20 11:02 Blood Pressure 149/74 H 03/28/20 11:02 Blood Pressure Position Sitting 03/28/20 11:02 Pulse Oximetry 98 03/28/20 11:02 Oxygen Delivery Method Room Air 03/28/20 11:02 Oxygen Flow Rate 0 03/28/20 11:02
[2020-03-28 11:55] LABS: Abs Immature Grans 0.02 10^3/uL (0.0-0.06); Absolute Basophil Count 0.05 10^3/uL (0.0-0.2); Absolute Eosinophil Count 0.12 10^3/uL (0.0-0.7); Absolute Lymphocyte Count 1.17 10^3/uL (1.2-3.4); Absolute Neutrophil Count 3.61 10^3/uL (1.2-6.7); Basophils % 0.9; Eosinophils % 2.2; HCT 43.5 % (36.0-46.0); HGB 14.2 g/dL (11.2-15.7); Immature Grans % 0.4; Lymphocytes % 21.4; MCH 31.8 pg (27.0-33.0); MCHC 32.6 % (32.0-36.0); MCV 97.5 fL (80-95); MPV 9.4 fL (8.0-11.0); Monocytes % 9.1; Nucleated RBC 0 %; Platelet Count 300 10^3/uL (130-400); RBC 4.46 10^6/uL (3.93-5.22); RDW 13.8 % (11.7-14.6); RDW-SD 49.6 fL; WBC 5.47 10^3/uL (4.4-10.8)
--- NOTE | 2020-03-28 12:10 | DI.RAD_ITS ---
EXAM: XR CHEST 2V PA LATERAL CLINICAL HISTORY: SOB TECHNIQUE: 2D digital imaging was performed. COMPARISON: No exams were available for comparison FINDINGS: The heart is enlarged and the aorta is mildly tortuous. The lungs are not well inflated but appear c lear. No pneumothorax or thoracic compression fracture is seen. There are degenerative changes in t he thoracic spine. IMPRESSION: No acute pulmonary findings. DATA REPOSITORY: RADIATION DOSE DELIVERED:
[2020-03-28 12:12] LABS: PTT Activated 23.6 sec (21.0-31.4); Prothrombin Time 10.5 sec (9.3-11.0)
[2020-03-28 12:18] LABS: ALT 23 U/L (14-59); AST 22 U/L (15-37); Albumin 3.5 g/dL (3.4-5.0); Alkaline Phosphatase 75 U/L (46-116); Anion Gap 5.2 mmol/L (3-11); BUN 11 mg/dL (7-18); Bilirubin, Total 0.3 mg/dL (0.2-1.0); CO2 31.8 mmol/L (21.0-32.0); CREATININE 0.82 mg/dL (0.55-1.02); Calcium 9.1 mg/dL (8.5-10.1); Chloride 102 mmol/L (98-107); Glucose 91 mg/dL (74-106); Magnesium 2.2 mg/dL (1.8-2.4); NT-proBNP 189 pg/mL (<300); Potassium 4.2 mmol/L (3.5-5.1); Sodium 139 mmol/L (136-145); Total Protein 7.9 g/dL (6.4-8.2); Troponin I < 0.05 ng/mL (<0.06)
[2020-03-28 12:27] LABS: D-Dimer 610 ng/mlFEU (<500)
--- NOTE | 2020-03-28 12:28 | DI.VRAD_ITS ---
PROCEDURE INFORMATION: Exam: XR Chest, 2 Views Exam date and time: 03/28/2020 12:11 PM Age: 74 years old Clinical indication: Shortness of breath TECHNIQUE: Imaging protocol: XR of the chest Views: 2 views. COMPARISON: No relevant prior studies available. FINDINGS: Lungs: The lungs are normally expanded and clear. Pleural space: Normal. Heart/Mediastinum: Enlarged heart. Vasculature: Normal pulmonary vessel caliber. Normal aorta. Bones/joints: The bones are intact. IMPRESSION: Cardiomegaly but no acute disease. Dictated and Authenticated by: Fletcher Talley MD. Ordering:PARAMJIT Prajapati MD
--- NOTE | 2020-03-28 14:45 | RT.EKG_ITS ---
APPROVED REPORT Exam: Resting ECG Patient Location: E HR:75 bpm ECG Measurements Heart Rate 75 AXIS NM 165 P 42 QRSd 79 QRS -4 QT 420 T 32 QTc 470 Conclusion Sinus rhythm...normal P axis, V-rate 75 Inferior infarct, old...Q >35mS, II III aVF
[2020-03-28 15:35] LABS: Troponin I < 0.05 ng/mL (<0.06)
== END 2020-03-28 16:00 | disposition home or self-care (01) ==
PROVIDERS: Emergency Provider Physician Assistant; PCP Family Medicine
DX: R06.02 Shortness of breath (principal); G30.1 Alzheimer's disease with late onset; F05 Delirium due to known physiological condition; F02.80 Dementia in other diseases classified elsewhere, unspecified severity, without behavioral disturbance, psychotic disturbance, mood disturbance, and anxiety; F41.9 Anxiety disorder, unspecified
CPT/HCPCS: 36415; 80053; 93005; 99285; 71046; 83735; 83880; 84484; 85025; 85379; 85610; 85730; 93010; 99284

== ENCOUNTER 2021-01-11 18:13 | Outpatient (REF) | payer MEDICARE, SELFPAY ==
[2021-01-11 19:21] LABS: Bilirubin Negative (Negative); Blood Large (Negative); Clarity Cloudy (Clear); Glucose Negative (Negative); Ketones 15 mg/dL (Negative); Leukocyte Esterase Moderate (Negative); Nitrite Negative (Negative); Specific Gravity 1.025 (1.005-1.025); Urobilinogen 0.2 EU/dL (Up TO 0.2)
[2021-01-11 19:59] LABS: C & S Indicated? Yes; WBC >50 HPF (0-5)
== END 2021-01-11 18:14 | disposition home or self-care (01) ==
LOC: LBN 18:13
PROVIDERS: PCP Family Medicine; Visit Provider Family Medicine
DX: R30.0 Dysuria (principal)
CPT/HCPCS: 87077; 81003; 81015; 87086; 87186

== ENCOUNTER 2021-03-04 19:38 | Outpatient (REF) | payer OTHER, SELFPAY ==
[2021-03-05 00:13] LABS: COVID-19 RT-PCR UVMMC Result Negative (Negative)
== END 2021-03-04 19:39 | disposition home or self-care (01) ==
LOC: LBN 19:38
PROVIDERS: PCP Family Medicine; Visit Provider Family Medicine
DX: Z20.822 Contact with and (suspected) exposure to COVID-19 (principal)
CPT/HCPCS: U0003

== ENCOUNTER 2021-03-07 16:21 | Outpatient (REF) | payer OTHER, SELFPAY ==
[2021-03-10 07:45] LABS: COVID-19 RT-PCR Result Not Detected ((See Note))
== END 2021-03-07 16:22 | disposition home or self-care (01) ==
LOC: LBN 16:21
PROVIDERS: PCP Family Medicine; Visit Provider Nurse Practitioner Adult Health
DX: Z20.822 Contact with and (suspected) exposure to COVID-19 (principal)
CPT/HCPCS: U0003

== ENCOUNTER 2021-03-16 08:56 | Inpatient (IN) | payer OTHER, SELFPAY ==
[2021-03-16] VITALS (22 sets, daily range): BP systolic 102–193; BP diastolic 41–152; PULSE 72–157; RESP 11–20; TEMP 36.3–36.5; O2SAT 90–100
--- NOTE | 2021-03-16 08:45 | RT.EKG_ITS ---
APPROVED REPORT Exam: Resting ECG Reason for Exam: possible stroke Patient Location: E HR:76 bpm ECG Measurements Heart Rate 76 AXIS MT 174 P 0 QRSd 80 QRS -26 QT 395 T -29 QTc 445 Conclusion Sinus rhythm. Low voltage lead II Nonspecific st changes
--- NOTE | 2021-03-16 09:08 | DI.CT_ITS ---
Exam(s) CT HEAD WO EXAM: CT HEAD WO CLINICAL HISTORY: mental status change. TECHNIQUE: Imaging Protocol: Axial computed tomography images with coronal and sagittal reformatted images were created and reviewed COMPARISON: CR,XR XR CHEST 2V PA LATERAL from 03/28/2020 CR,XR XR CHEST 2V PA LATERAL from 03/28/2020 FINDINGS: Images somewhat degraded by motion artifact. There are no obvious skull fractures nor fluid in the visualized paranasal sinuses. There is no evidence of intracranial hemorrhage, mass effect, or shift of midline structures. There are no extra-axial fluid collections. The ventricles are not enlarged or shifted and there is no blo od within the ventricular system nor within the basal cisterns. There is moderate amount of bilateral periventricular hypodensity consistent with chronic small vesse l disease. IMPRESSION: Chronic white matter periventricular ischemic changes. No obvious acute infarction. No evidence of intracranial hemorrhage. RADIATION DOSE DELIVERED: 713.63mGy.cm Total DLP DATA REPOSITORY: All CT scans at this facility are submitted to the National Radiology Data Registry (NRDR) Dose Index Registry (DIR) with the [employer] (ACR). RADIATION OPTIMIZATION: All CT scans at this facility use at least one of these dose optimization te chniques: automated exposure control; mA and/or kV adjustment per patient size (includes targeted exa ms where dose is matched to clinical indication); or iterative reconstruction.
--- NOTE | 2021-03-16 09:18 | W.ED.GENAD ---
Discharge Plan Disposition Patient Disposition: [facility] INPATIENT Condition: Improving Discharge Details Clinical Impression: Dementia, Palliative care patient Admit Date/Time: 03/16/21 10:26 Admit Provider: Stefany Johnson Attending Provider: Stefany Johnson Primary Care Provider: Stefany Johnson ED Provider: Ankur Caraballo Medical Decision Making 75-year-old female brought by EMS. She was reported to have had some seizure-like activity while seated on the toilet at home. She was found to have some agonal respirations by EMS who assisted her with [id number]. She then had improvement of her mental status and upon arrival is alert, tracking staff through the room and able to speak 1 word at a time. She has severe and advanced dementia for which she is on hospice care. She is a DNR/DNI. Screening CT of the head without acute findings. Laboratories obtained and without significant pathology. Case discussed with palliative care, family unable to manage current symptoms at home, and patient will be admitted for symptom management. HPI General Mode of arrival: EMS. Date/Time Provider Initiated Documentation: 03/16/21 09:01. Limitations to Documentation: altered mental status. Information obtained by: EMS. History of Present Illness 75 year old F presents to the emergency department with the chief complaint of Mental status change at home, described as moderate, Patient started experiencing this hour(s) and it has been other (Improving). Patient did receive the following treatments prior to arrival, other (Assisted mask ventilation by EMS) Related Data Home Medications Medication Instructions Recorded Confirmed cholecalciferol (vitamin D3) 400 unit PO DAILY 01/03/13 03/16/21 [Vitamin D3] multivitamin 1 ea PO DAILY 01/03/13 03/16/21 cyanocobalamin (vitamin B-12) 1,000 mcg PO DAILY 02/18/18 03/16/21 acetaminophen [Tylenol] 1 tab PO PRN PRN 06/03/18 03/16/21 furosemide 20 mg tablet 20 mg PO DAILY #90 tab 12/30/19 03/16/21 divalproex 125 mg capsule,delayed 125 mg PO TID #90 cap 05/26/20 03/16/21 release sprinkle trazodone 100 mg tablet 100 mg PO QHS #90 tab 06/15/20 03/16/21 Previous Rx's Medication Instructions Recorded furosemide 20 mg tablet 20 mg PO DAILY #90 tab 12/30/19 divalproex 125 mg capsule,delayed 125 mg PO TID #90 cap 05/26/20 release sprinkle trazodone 100 mg tablet 100 mg PO QHS #90 tab 06/15/20 Allergies Allergy/AdvReac Type Severity Reaction Status Date / Time No Known Allergies Allergy Unverified 03/16/21 11:03 General Stated Complaint: CVA/TIA GINNA: 1 Review of Systems Unobtainable due to mental condition [facility] Medical History Alzheimer's dementia, late onset Dementia DNI (do not intubate) DNR (do not resuscitate) Encounter for hospice care discussion Fecal incontinence Goals of care, counseling/discussion Hallucinations mostly about children, who require her care Hallucinations due to late onset dementia Hospice care patient Hyperlipidemia Insomnia due to medical condition part of her dementia Labile mood Major neurocognitive disorder with Lewy bodies, possible Palliative care patient POLST (Physician Orders for Life-Sustaining Treatment) done 09/02/19 Postmenopausal Bleeding 05/09/18. one episode of blood on underclothes while uterine procidentia unsupported. Pap/HPV Nl/Neg. EMBx: atypical metaplastic cells. Inactive endometrial glandular tissue. Patient family declined surgical intervention to further evaluate postmenopausal bleeding. 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 Periodic surveillance was too uncomfortable. 10/2018 ring with support pessary 76 mm placed. Requires assistance with activities of daily living (ADL) Risk for falls Urinary incontinence Vitamin D deficiency Wandering Surgical History History of colonoscopy 06/04/2018 Family History Mother , age 92 of cancer; had dementia for about 7 years Heart disease Alzheimer disease Cancer Father , of stroke age 72 Cancer Stroke Hypertension Daughter Obesity Daughter Caregiver stress Granddaughter No problems noted. 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 [employer] Pets and animals: Yes (2) Pets and animals: cat(s) What is your relationship status?: How often do you talk on the phone with friends or family?: never How often do you get together with friends or relatives?: three or more times per week Panel score (0-1 are the most socially isolated patients): 2 What type of physical activity do you participate in: walking Duration: 30-45 minutes/day Frequency: daily Special madhu needs: No Agree to transfusion: No Seatbelt use: always Working smoke detector in home: Yes Fire extinguisher in home: Yes Do you feel safe at home: Yes Do you feel safe in your relationship?: Yes Additional Social history: Lives with who helps her get dressed, does personal care and helps her shower. No longer able to do her own personal care (as of 12/30). She wanders at night; locked out twice last fall. New locks prevent egress outdoors--but during the day, napped and she wandered again. Still likes to dance and listen to Dwight with her daughter Zoey. Prior to October 2019, she went to [place] at least 2 days per week--but stopped when COVID-19 shut it down. tiring. FAST 7c as of 07/15/20. Now hospice eligible. Female Reproductive History Menstrual Menopause type: natural History History 3 Para Hx # Term Pregnancies 2 Multiple births Hx # Pregnancies Ectopic pregnancies AB induced Hx Number of Living Children AB spontaneous Exam Narrative Exam Narrative: GEN: awake, alert, interactive, speaks 1 word at a time. HEAD: Normocephalic, atraumatic ENT: Mucous membranes dry, oropharynx unremarkable, External ear exam unremarkable EYES: PERRL, EOMI NECK: Full ROM, no POOL, no menigismus CHEST/RESP: Nontender, clear to auscultation bilateral, no wheeze/rhonchi/rales CARDIOVASCULAR: RRR, no murmur, rub larissa. 2+ Rad pulse bilateral ABDOMEN: Soft, nontender, no mass. +Bowel sounds EXT: Full ROM, no edema, no rash Neuro: Grossly normal neurologic exam, tracks me through the room and will speak 1 word at a time. Psych: Unable to assess, flat affect Course Vital Signs Vital signs: Vital Signs Temperature 36.5 C 03/16/21 09:10 Pulse 78 03/16/21 09:10 Respiratory Rate 18 03/16/21 09:10 Blood Pressure 191/152 H 03/16/21 09:10 Pulse Oximetry 90 L 03/16/21 09:10 Temperature 36.5 C 03/16/21 09:10 Temperature Source Skin 03/16/21 09:10 Pulse 78 03/16/21 09:10 Respiratory Rate 18 03/16/21 09:10 Blood Pressure 191/152 H 03/16/21 09:10 Blood Pressure Position Supine 03/16/21 09:10 Pulse Oximetry 90 L 03/16/21 09:10 Oxygen Delivery Method Nasal Cannula 03/16/21 09:10
[2021-03-16 09:28] LABS: Abs Immature Grans 0.09 10^3/uL (0.0-0.06); Absolute Basophil Count 0.06 10^3/uL (0.0-0.2); Absolute Eosinophil Count 0.19 10^3/uL (0.0-0.7); Absolute Lymphocyte Count 2.24 10^3/uL (1.2-3.4); Eosinophils % 3.2; HCT 42.7 % (36.0-46.0); HGB 13.9 g/dL (11.2-15.7); Immature Grans % 1.5; Lymphocytes % 38.1; MCHC 32.6 % (32.0-36.0); MCV 98.2 fL (80-95); MPV 9.2 fL (8.0-11.0); Monocytes % 6.8; Neutrophils % 49.4; Nucleated RBC 0 %; Platelet Count 331 10^3/uL (130-400); RBC 4.35 10^6/uL (3.93-5.22); RDW 13.8 % (11.7-14.6); RDW-SD 50.7 fL; WBC 5.88 10^3/uL (4.4-10.8)
[2021-03-16 09:42] LABS: ALT 19 U/L (14-59); AST 14 U/L (15-37); Albumin 3.2 g/dL (3.4-5.0); Alkaline Phosphatase 70 U/L (46-116); BUN 10 mg/dL (7-18); Bilirubin, Total 0.3 mg/dL (0.2-1.0); Calcium 9.2 mg/dL (8.5-10.1); Chloride 104 mmol/L (98-107); Estimated GFR 54.35 (mL/min/1.73m2); Glucose 121 mg/dL (74-106); Potassium 3.7 mmol/L (3.5-5.1); Sodium 141 mmol/L (136-145); Total Protein 7.6 g/dL (6.4-8.2)
[2021-03-16 09:53] LABS: Bilirubin Negative (Negative); Blood Trace-intact (Negative); Clarity Clear (Clear); Glucose Negative (Negative); Ketones Negative (Negative); Leukocyte Esterase Negative (Negative); Nitrite Negative (Negative); Specific Gravity >= 1.030 (1.005-1.025); Urobilinogen 0.2 EU/dL (Up TO 0.2); pH 5.5 (5-8)
[2021-03-16 10:05] LABS: Bacteria Few HPF (Negative); C & S Indicated? No; Casts 20-50 Hyaline LPF (Negative); Crystals Negative HPF (Negative); Epithelial Cells Few HPF (Negative); Mucus Moderate (Negative); Other Cells Few Renal (Negative); RBC 0-2 HPF (0-2); WBC 0-2 HPF (0-5)
[2021-03-16 10:49] LABS: Source Nasal/Nares
[2021-03-16 11:39] LABS: COVID-19 PCR Negative (Negative)
[2021-03-16] MEDS: LORazepam 2 MG/ML VIAL 1 MG IVP ×2 (13:05→15:18)
[2021-03-16] MEDS: Normal Saline Flush 10 ML SYR (13:06)
--- NOTE | 2021-03-16 15:14 | CHAPLAIN ---
Stephy is a hospice patient who was brought in for symptom management. She had seizure-like activity at home with her Kenan, and then again here when her daughter, Zoey, was with her. Zoey was very frightened by watching her mom have a seizure. Zoey's daughter, who is a neurologist [employer] Checker at [employer] [place] arrived here as well. I visited some with Zoey and Kenan and will continue to.
--- NOTE | 2021-03-16 15:15 | HPE_ITS ---
Date of service: 03/16/21 Time of Service: 15:15 Assessment and Plan Assessment and plan (1) Seizures: Status: Acute Assessment and plan: Likely related to Alzheimer's dementia. CT head did not show acute abnormalities, urine was not suspicious for infection in the ED. She had what is believed to be her first seizure this morning and then another seizure when she was admitted to the med/surg floor. She bit her tongue during the episode in the hospital. Started on lorazepam drip for seizures, she is unable to take PO medications at this time. (2) Major neurocognitive disorder with Lewy bodies, possible: Status: Chronic (3) Hallucinations due to late onset dementia: Status: Chronic (4) Urinary incontinence: Status: Acute (5) Fecal incontinence: Status: Acute (6) Hospice care patient: Status: Acute Assessment and plan: She is admitted to [facility] on Hospice Symptom management. Hospice will continue to follow. Please call hospice with any questions or concerns. History of Present Illness Narrative: Stephy is a 75 year old female with advanced mixed dementia who is on hospice for that diagnosis. She was noted to have seizure like activity while on the toilet with caregivers present. Her family was concerned and alerted EMS, rather than calling hospice. EMS noted agonal breathing and provided assistance via bag-valve mask after which she reportedly returned to her baseline mental status. In the ED, there was concern for possible CVA and she was referred for a CT head, which did not show any acute abnormalities. She was given IV fluids and hospice was contacted for admission for symptom management. After she was moved to the med/surg floor, she was noted to have another seizure, during which she bit her tongue. She received lorazepam 1 mg IVP and the seizure activity resolved. At the time of her visit, her and 2 daughters were present. Her family reports that she came home from a respite stay at [facility] days ago. Her was only giving her Depakote once daily for mood stabilization. She does not have a history of seizures but her family reports that she often had muscle jerking/twitching at home. She has been minimally to unresponsive since she has been on the med/surg floor. Nursing is requesting a lorazepam drip to prevent seizures since she is unable to take any medications orally. Review of Systems Unobtainable due to mental status [facility] Medical History (Updated 03/17/21 @ 20:09 by Stefany Johnson MD) Alzheimer's disease, early onset symptoms began age 64 Dementia DNI (do not intubate) DNR (do not resuscitate) Dying care Encounter for hospice care discussion Fecal incontinence Goals of care, counseling/discussion Hallucinations mostly about children, who require her care Hallucinations due to late onset dementia Hospice care patient Hyperlipidemia Insomnia due to medical condition part of her dementia Labile mood Major neurocognitive disorder with Lewy bodies, possible Myoclonus Palliative care patient POLST (Physician Orders for Life-Sustaining Treatment) done 09/02/19 Postmenopausal Bleeding 05/09/18. one episode of blood on underclothes while uterine procidentia unsupported. Pap/HPV Nl/Neg. EMBx: atypical metaplastic cells. Inactive endometrial glandular tissue. Patient family declined surgical intervention to further evaluate postmenopausal bleeding. 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 Periodic surveillance was too uncomfortable. 10/2018 ring with support pessary 76 mm placed. Requires assistance with activities of daily living (ADL) Risk for falls Seizures Uncontrolled pain Urinary incontinence Vitamin D deficiency Wandering Surgical History History of colonoscopy 06/04/2018 Family History Mother , age 92 of cancer; had dementia for about 7 years Heart disease Alzheimer disease Cancer Father , of stroke age 72 Cancer Stroke Hypertension Daughter Obesity Daughter Caregiver stress Granddaughter No problems noted. 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 [employer] Pets and animals: Yes (2) Pets and animals: cat(s) What is your relationship status?: How often do you talk on the phone with friends or family?: never How often do you get together with friends or relatives?: three or more times per week Panel score (0-1 are the most socially isolated patients): 2 What type of physical activity do you participate in: walking Duration: 30-45 minutes/day Frequency: daily Special madhu needs: No Agree to transfusion: No Seatbelt use: always Working smoke detector in home: Yes Fire extinguisher in home: Yes Do you feel safe at home: Yes Do you feel safe in your relationship?: Yes Additional Social history: Lives with who helps her get dressed, does personal care and helps her shower. No longer able to do her own personal care (as of 12/30). She wanders at night; locked out twice last fall. New locks prevent egress outdoors--but during the day, napped and she wandered again. Still likes to dance and listen to Dwight with her daughter Zoey. Prior to October 2019, she went to [place] at least 2 days per week--but stopped when COVID-19 shut it down. tiring. FAST 7c as of 07/15/20. Now hospice [facility]. Female Reproductive History Menstrual Menopause type: natural History History 3 Para Hx # Term Pregnancies 2 Multiple births Hx # Pregnancies Ectopic pregnancies AB induced Hx Number of Living Children AB spontaneous Meds Allergies and Home Medications Allergies Allergy/AdvReac Type Severity Reaction Status Date / Time No Known Allergies Allergy Unverified 03/16/21 11:03 Home Medications Medication Instructions Recorded Confirmed Type cholecalciferol (vitamin D3) 400 unit PO DAILY 01/03/13 03/16/21 History [Vitamin D3] multivitamin 1 ea PO DAILY 01/03/13 03/16/21 History cyanocobalamin (vitamin B-12) 1,000 mcg PO DAILY 02/18/18 03/16/21 History acetaminophen [Tylenol] 1 tab PO PRN PRN 06/03/18 03/16/21 History furosemide 20 mg tablet 20 mg PO DAILY #90 tab 12/30/19 03/16/21 Rx divalproex 125 mg capsule,delayed 125 mg PO TID #90 cap 05/26/20 03/16/21 Rx release sprinkle trazodone 100 mg tablet 100 mg PO QHS #90 tab 06/15/20 03/16/21 Rx Exam Narrative Exam Narrative: General: well-nourished, older female, laying in bed, completely unresponsive to verbal and tactile stimuli. +frequent myoclonus noted. Her and 2 daughters were present for the visit. HEENT: normocephalic, atraumatic, face soft, no grimmacing or furrowed brows. Neck: supple. Cardiovascular: heart sounds regular, nontachycardic. Respiratory: respirations appear even and unlabored, lungs sound clear on limited anterior and lateral exam. GI: +BS, soft, nondistended. Extremities: no edema. Myoclonus as above. Results Labs Result diagrams: 03/16/21 09:18 03/16/21 09:18 Labs: Laboratory Results - last 24 hr 03/16/21 03/16/21 03/16/21 09:18 09:18 09:45 WBC 5.88 RBC 4.35 Hgb 13.9 Hct 42.7 MCV 98.2 H MCH 32.0 MCHC 32.6 RDW 13.8 Plt Count 331 MPV 9.2 Immature Gran % 1.5 Neutrophils % 49.4 Lymphocytes % 38.1 Monocytes % 6.8 Eosinophils % 3.2 Basophils % 1.0 Nucleated RBC % 0 Absolute Neutrophils 2.90 Absolute Lymphocytes 2.24 Absolute Monocytes 0.40 Absolute Eosinophils 0.19 Absolute Basophils 0.06 Sodium 141 Potassium 3.7 Chloride 104 Carbon Dioxide 25.0 Anion Gap 12.0 H BUN 10 Creatinine 1.0 Estimated GFR/1.73 m2 54.35 Glucose 121 H Calcium 9.2 Total Bilirubin 0.3 AST 14 L ALT 19 Alkaline Phosphatase 70 Total Protein 7.6 Albumin 3.2 L Urine Color Yellow Urine Clarity Clear Urine pH 5.5 Ur Specific [place] >= 1.030 H Urine Protein 100 H Urine Ketones Negative Urine Blood Trace-intact H Urine Nitrite Negative Urine Bilirubin Negative Urine Urobilinogen 0.2 Ur Leukocyte Esterase Negative Urine RBC 0-2 Urine WBC 0-2 Ur Epithelial Cells Few Urine Crystals Negative Urine Bacteria Few Urine Casts 20-50 Hyaline Urine Mucus Moderate Urine Other Few Renal Ur Culture Indicated? No Urine Glucose Negative COVID-19 Source SARS-CoV-2 (PCR) 03/16/21 10:43 WBC RBC Hgb Hct MCV MCH MCHC RDW Plt Count MPV Immature Gran % Neutrophils % Lymphocytes % Monocytes % Eosinophils % Basophils % Nucleated RBC % Absolute Neutrophils Absolute Lymphocytes Absolute Monocytes Absolute Eosinophils Absolute Basophils Sodium Potassium Chloride Carbon Dioxide Anion Gap BUN Creatinine Estimated GFR/1.73 m2 Glucose Calcium Total Bilirubin AST ALT Alkaline Phosphatase Total Protein Albumin Urine Color Urine Clarity Urine pH Ur Specific [place] Urine Protein Urine Ketones Urine Blood Urine Nitrite Urine Bilirubin Urine Urobilinogen Ur Leukocyte Esterase Urine RBC Urine WBC Ur Epithelial Cells Urine Crystals Urine Bacteria Urine Casts Urine Mucus Urine Other Ur Culture Indicated? Urine Glucose COVID-19 Source Nasal/Nares SARS-CoV-2 (PCR) Negative Last Vital Signs Temp 36.3 C L 03/16/21 12:57 Pulse 157 H 03/16/21 12:57 Resp 20 03/16/21 12:57 BP 193/74 H 03/16/21 12:57 Pulse Ox 97 03/16/21 12:57
[2021-03-16] MEDS: Normal Saline Flush 10 ML SYR IVP (15:18)
[2021-03-17] MEDS: MORPHine 2 MG/ML SYR 1 MG IVP (07:32)
[2021-03-17] MEDS: Normal Saline Flush 10 ML SYR IVP ×4 (07:32→12:39)
[2021-03-17] MEDS: MORPHine 2 MG/ML SYR IVP ×2 (08:50→10:35)
[2021-03-17] MEDS: Scopolamine 1 MG/3 DAYS PATCH TD (10:36)
--- NOTE | 2021-03-17 10:42 | PDOC.CMPRO ---
- If Service Date Differs Date of service: 03/17/21 Time of Service: 10:42 Care Management Progress Note S/O: Stephy was resting comfortably when CM met with her. Her caregiver, Aury, was in the room, and was pleasant and engaged in conversation. She reported that per MD, Stephy will likely have her end of life care at [facility]. She stated that she is here to help the family, as she feels that she is part of it after being Stephy's caregiver for so long. She reported that she will be here around meal times to let the family members have a break. She was unsure of the family's final arrangement plans. CM will continue to follow. A: Stephy is a 75 year old female admitted to [facility] for Hospice symptom management. P: Anticipate Stephy will return home when her symptoms are managed, or she may have her end of life care at [facility]. Her will drive her home via private vehicle. She will follow up with Hospice in the community, as her hospice services will resume at home.
[2021-03-17] MEDS: MORPHine 1,000 MG in CADD PUMP CASSETTE 1 EACH, Normal Saline 80 ML 0.3 MG SC INF (12:58)
--- NOTE | 2021-03-17 13:56 | CHAPLAIN ---
Stephy has been mostly quiet today, according to her daughter Zoey. A morphine pump will be added soon. There is a family meeting at [address] Johnson. Stephy has been home on hospice, and the family knows Dr. Johnson. Yesterday Stephy was brought to the ED following a seizure at home. She had another seizure once she was admitted. This was very scary for Zoey who was with Stephy at the time. Stephy's , Kenan, has been the primary caregiver with support from his two daughters. 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 Zoey said that yesterday was a shock to her and today she is working on acceptance. Zoey's daughter is with her. According to Zoey and her daughter, Stephy as a very busy and active woman, so it's difficult for them to see her unresponsive.
--- NOTE | 2021-03-17 19:44 | PGE_ITS ---
Date of Service Date of service: 03/17/21 Time of Service: 11:20 Assessment and Plan Assessment and plan (1) Seizures: Status: Acute Assessment and plan: New as of day of admission. Controlled on lorazepam drip, running on lowest dose at 0.5 mg/hr. No breakthrough seizures on this medication. (2) Hospice care patient: Status: Acute Assessment and plan: Remains on hospice symptom management. (3) Dying care: Status: Acute Assessment and plan: Stephy is not expected to survive this admission. Discussed at length with and caregiver. says his would not want to live as she is currently living. If she could speak for herself, she would want to prevent further seizures and treat her pain. She always had a very low pain tolerance, according to her . (4) Uncontrolled pain: Status: Acute Assessment and plan: Started on a morhpine pump at 3 mg per hour, based on nurses' report that 2 mg per hour is not keeping her comfortable. Bolus available q 15 minutes. (5) Myoclonus: Status: Acute Assessment and plan: Not as active as it was on day of admission, in the hours following her first seizures. Subdued by her lorazepam drip. (6) Alzheimer's disease, early onset: Status: Chronic Assessment and plan: This is the ultimate cause of her . Strong family history of same. Subjective Subjective Patient reports: still having pain; denies tolerating a regular diet and bowel movement Interval history since last seen: Stephy was lying on her back, slightly toward her right, unresponsive except for when I was examining her feet and ankles. Her left foot is extended and turned inward. I tried to test her Babinski reflex and she pulled her foot away, moaning and grimacing. Thereafter, she looked uncomfortable. She had already been receiving prn morphine of 2 mg on an hourly basis for uncontrolled pain. I explained to Kenan and Aury how I was int erpreting Stephy's furrowed brow and moan as signs of pain. Kenan agreed that Stephy looked uncomfortable. Given this, the decision was made to start her on a morphine pump. Her , Kenan, and friend/chief wharfinger Aury were in her room with her. Aury told me the story of Stephy's seizure at home, and what brought her into the hospital. She really has not regained consciousness since that seizure, followed by another once she was admitted to the floor. She is on a 0.5mg/hr lorazepam drip. She has had no further seizures on this medication. Her daughters had been present in the am. I told Kenan and Aury that I would return tomorrow mid-afternoon to catch up with them again. Exam Narrative Exam Narrative: General: well-nourished, older female, laying in bed, unresponsive to all verbal and most tactile stimuli. She did pull away when I was examining her feet and then had a persistent grimace and furrowed brow after that response. +frequent myoclonus noted. Her and caregiver friend Aury were present for the visit. HEENT: normocephalic, atraumatic. + snoring. - apnea. Neck: supple. No LAD. No JVD. Cardiovascular: heart sounds regular, nontachycardic. Respiratory: respirations appear even and unlabored, lungs sound with rhonchi bilaterally on limited anterior and lateral exam. No observed apnea. GI: +BS, soft, nondistended. Extremities: no edema. Myoclonus as above. Left foot in plantar flexion. Objective Last Vital Signs Temp 97.3 F L 03/16/21 12:57 Pulse 157 H 03/16/21 12:57 Resp 20 03/16/21 12:57 BP 193/74 H 03/16/21 12:57 Pulse Ox 97 03/16/21 12:57 Laboratory Results - last 24 hr 03/16/21 09:37 Urine Color Cancelled Urine Clarity Cancelled Urine pH Cancelled Ur Specific [place] Cancelled Urine Protein Cancelled Urine Ketones Cancelled Urine Blood Cancelled Urine Nitrite Cancelled Urine Bilirubin Cancelled Urine Urobilinogen Cancelled Ur Leukocyte Esterase Cancelled Urine Glucose Cancelled
--- NOTE | 2021-03-18 10:09 | PDOC.CMPRO ---
- If Service Date Differs Date of service: 03/18/21 Time of Service: 10:09 Care Management Progress Note S/O: Stephy was resting comfortably when CM met with her. Her , daughter (Zoey), and caregiver, Aury were in the room. Per report, Stephy's pain was not controlled at 2mg morphine per hour, therefore it was increased to 3mg per hour. She will remain at [facility] for end of life care. CM discussed final arrangements with the family today, who reported that everything has been pre arranged with [facility] in [facility]. Stephy had anointing of the sick today by Father Sue, coordinated by the Confectionery Laboratory Manager. CM will continue to support Stephy and her family during this difficult time. A: Stephy is a 75 year old female admitted to [facility] for Hospice symptom management. P: Anticipate Stephy will have her end of life care at [facility]. Her family have been visiting daily. Final arrangements have been made with [facility] in [place], [place].
--- NOTE | 2021-03-18 15:43 | CHAPLAIN ---
Stephy. a hospice patient in the community, has been unresponsive since admission, following a seizure. Her daughters, Zoey and Lizette have been here and he , Kenan. A family friend/caregiver Aury has stayed with Stephy at times for the family could some time together. Stephy has had Alzheimer's disease for several years now and that's why she's on hospice. Setphy is Confucianism, although has not attended [employer] in several years. The family did accept an offer to have the professor of astronomy visit for anointing of the sick. Fr. Humphrey visited this morning for that.
[2021-03-18] MEDS: Glycopyrrolate 0.2 MG/1 ML VIAL 0.1 MG IVP (17:21)
[2021-03-18] MEDS: Normal Saline Flush 10 ML SYR IVP (17:21)
--- NOTE | 2021-03-18 21:01 | W.PM.PROGNOT ---
Date of Service Date of service: 03/18/21 Time of Service: 14:02 Assessment and Plan Assessment and plan (1) Alzheimer's disease, early onset: Status: Chronic Assessment and plan: Long discussion with family about her seizures being a component of her advanced Alzheimer's Disease. She has been on hospice for AD for > 6 mos. Family is aware that she is actively dying from same. (2) Dying care: Status: Acute Assessment and plan: Seizures controlled. Pain controlled. Secretions attended to today: added glycopyrolate IV to her atropine drops and scopolamine patch. Explained to family that rattle is due to her inability to swallow. Reassured them that Stephy is not drowning, nor suffocating. Encouraged daughters and to sit closer to Stephy, and to touch her reassuringly. Explained that though she cannot speak, she can hear, and that they can speak to her. Due to covid-19, only 2 family members can be present at a time. Bill going home after our meeting so daughters can have extended time with their mother. (3) Seizures: Status: Acute Assessment and plan: 2 grand mal seizures on day of admission, none since my colleague Leydi Heaton started Stephy on a low dose lorazepam drip. She appears comfortable Veronica Greer was traumatized by watching her mother seize. She is very thankful that this is highly unlikely to occur again. (4) Hospice care patient: Status: Acute Assessment and plan: Remains symptom management level of care. (5) Difficulty clearing secretions: Status: Acute Assessment and plan: Part of her dying process. Glycopyrrolate ordered IV. (6) Terminal respiratory secretions: Status: Acute (7) Anticipatory grief: Status: Acute Assessment and plan: Reviewed normal grief, what to expect, with and daughters. They know that resident caregiver and HOT BALLER are available to them as needed. [facility] resident caregiver Paula Villalpando had contacted the local technical supervisor who came in and annointed Stephy. Subjective Subjective Interval history since last seen: I met with Stephy's 2 daughters and her , Kenan after first examining her. She was very comfortable, resting peacefully in her bed on 0.5 mg/hr of lorazepam IV continuously and 3 mg/hr of morphine SC continuously. She felt warm to the touch, c/w a terminal fever. She had no grimace, no moaning. She was having episodes of apnea, lasting up to 10 seconds or so. Her and younger daughter, Zoey, were with her in her room during my exam of Stephy. They both felt that she was comfortable. Her daughter Zoey had witnessed her seize when Stephy was first admitted; this has left her with some trepidation. Both Kenan and Zoey were sitting in chairs about 5-8 feet away from Stephy's bed. I explained that they could sit closer to her. They were afraid of getting in the nurses' or my way. She made no sounds at all today, in contrast to a cry out and a moan yesterday. Exam Narrative Exam Narrative: General: overweight, warm to touch, flushed, older female, lying in bed, unresponsive to all verbal and tactile stimuli. No grimace. No clenching of hands. No furrowed brow. HEENT: normocephalic, atraumatic. + snoring. + apnea, lasting up to 10 seconds. + upper airway sounds, despite presence of scolpolamine patch. Neck: No LAD. + JVD. Cardiovascular: heart sounds regular, tachycardic. Respiratory: respirations appear even and unlabored, now with observed apnea. She does have some upper airway sounds. GI: +BS, soft, nondistended. Extremities: no edema. Dusky forefeet and toes bilaterally. Warm to touch. Left foot in plantar flexion. No other mottling. Neuro: unresponsive Skin: flushed, warm, hair damp Objective Last Vital Signs Temp 97.3 F L 03/16/21 12:57 Pulse 157 H 03/16/21 12:57 Resp 20 03/16/21 12:57 BP 193/74 H 03/16/21 12:57 Pulse Ox 97 03/16/21 12:57
--- NOTE | 2021-03-20 08:50 | W.PM.DDS ---
Date of service: 03/19/21 Time of Service: 07:50 Discharge Sum: Prov Provider Primary care physician: Dr Johnson Admitting clinician: Stefany Johnson Attending physician on admission: Stefany Johnson Pronouncing clinician: med staff Discharge Sum: Diag PCOD Cause of : Alzheimer's dementia Contributing Factors (1) Alzheimer's disease, early onset: (2) Dying care: (3) Seizures: (4) Hospice care patient: (5) Difficulty clearing secretions: (6) Terminal respiratory secretions: (7) Anticipatory grief: Discharge Sum: Summary Date and Time Admission Date: 03/16/2108/04/21 10:26 Date of : 03/19/21 Time of : 06:03 Summary Details: Stephy was admitted to [facility] for symptom management due to seizure secondary to longstanding early onset Alzheimer's dementia. She was started on a lorazepam drip and did not have further seizures. She was also started on a morphine drip for pain control. She peacefully morning of 03/19/2021 Additional Data Attending/PCP notified?: Yes Attending Physician: Stefany Johnson MD Was code activated?: No Autopsy requested?: No station examiner notified?: No Hospice patient?: Yes
--- NOTE | 2021-03-23 10:12 | CMACTNOTE_ITS ---
- If Service Date Differs Date of service: 03/23/21 Time of Service: 10:12 Care Management Activity Note CM receives a telephone call from Radha Keyes of the [facility]. CM confirms date of as 03/19/2021.
== END 2021-03-19 07:13 | disposition expired | DRG 57 ==
LOC: ER 10:56 → MS 11:51
PROVIDERS: Admitting Provider Family Medicine; Emergency Provider Emergency Medicine; PCP Family Medicine; Visit Provider Family Medicine
DX: G30.0 Alzheimer's disease with early onset (principal); R44.3 Hallucinations, unspecified; R56.9 Unspecified convulsions; F02.80 Dementia in other diseases classified elsewhere, unspecified severity, without behavioral disturbance, psychotic disturbance, mood disturbance, and anxiety; G31.83 Neurocognitive disorder with Lewy bodies; R32 Unspecified urinary incontinence; Z51.5 Encounter for palliative care; R15.9 Full incontinence of feces; Z66 Do not resuscitate; E78.5 Hyperlipidemia, unspecified; E55.9 Vitamin D deficiency, unspecified; Z91.83 Wandering in diseases classified elsewhere; R52 Pain, unspecified; N81.4 Uterovaginal prolapse, unspecified; G25.3 Myoclonus; F01.50 Vascular dementia, unspecified severity, without behavioral disturbance, psychotic disturbance, mood disturbance, and anxiety; Z20.822 Contact with and (suspected) exposure to COVID-19
CPT/HCPCS: 36415; 80053; 87635; 93005; 96374; 96375; 96376; 99285; 70450; 81003; 81015; 85025; 93010; J2060; J2270; J3490